=== PATIENT | female | born 1940 | race Two or more races ===

== ENCOUNTER 2017-05-08 10:10 | Inpatient (IN) | payer MEDICARE, OTHER ==
[~2017-05-08] VITALS: Ht 162.6 cm; Wt 59.0 kg
[2017-05-08] MEDS ORDERED: [UNRECOGNIZED DRUG - OTHER] PO (10:32)
[2017-05-08] MEDS ORDERED: IRBE300T19 PO (10:32)
[2017-05-08] MEDS ORDERED: LEVO25TA9 PO (10:32)
[2017-05-08] MEDS ORDERED: ASPI81TA31 PO (10:32)
[2017-05-08] MEDS ORDERED: IRBE1TAB33 PO (10:32)
[2017-05-08] MEDS ORDERED: METO-356 PO (10:32)
[2017-05-08] MEDS ORDERED: AMLO5TAB2 PO (10:32)
[2017-05-08] MEDS ORDERED: ONDANSETRON 4 MG/2 ML VIAL IV ONE (10:45)
[2017-05-08] MEDS ORDERED: MECLIZINE HCL 25 MG TABLET PO ONE (10:45)
--- NOTE | 2017-05-08 10:50 | NUR ---
MEDICATED PER MD ORDER. TO CAROL COSTELLO.
[2017-05-08] MEDS ORDERED: ONDANSETRON 4 MG/2 ML VIAL ONE ×2 (11:09→14:23)
[2017-05-08] MEDS ORDERED: MECLIZINE HCL 25 MG TABLET ONE (11:11)
[2017-05-08] MEDS ORDERED: ACETAMINOPHEN ES 500 MG TABLET PO ONE (11:30)
--- NOTE | 2017-05-08 11:30 | NUR ---
BACK FROM CT - COMPLAINING OF HEADACHE, DR BUNN NOTIFIED. MEDICATED FOR PAIN PER MD ORDER.
[2017-05-08 11:41] LABS: BASOPHILS % (AUTO) 0.5 % (0.0-2.0); EOSINOPHILS # (AUTO) 0.1 K/uL (0.0-0.7); HEMATOCRIT 41.9 % (31.2-41.9); HEMOGLOBIN 13.4 g/dL (10.9-14.3); LYMPHOCYTES % (AUTO) 10.7 % (20.5-51.5); MEAN CORPUSCULAR HEMOGLOBIN 24.7 uug (24.7-32.8); MEAN CORPUSCULAR HGB CONC 32 g/dL (32.3-35.6); MEAN CORPUSCULAR VOLUME 77.2 fL (75.5-95.3); MONOCYTES # (AUTO) 0.4 K/uL (2.0-10.0); MONOCYTES % (AUTO) 4.3 % (0.0-11.0); NEUTROPHILS # (AUTO) 7.5 K/uL (1.8-8.9); NEUTROPHILS % (AUTO) 83.5 % (38.5-71.5); PLATELET COUNT (AUTO) 257 K/uL (179-408); RED BLOOD CELL COUNT(AUTO) 5.43 MIL/uL (3.63-4.92); WHITE BLOOD COUNT (AUTO) 8.9 K/uL (3.8-11.8)
[2017-05-08] MEDS ORDERED: ACETAMINOPHEN ES 500 MG TABLET ONE (11:42)
[2017-05-08 12:20] LABS: ALANINE AMINOTRANSFERASE 20 U/L (14-59); ALKALINE PHOSPHATASE 71 U/L (50-136); ASPARTATE AMINOTRANSFERASE 17 U/L (15-37); BILIRUBIN,DIRECT 0.1 mg/dL (0.0-0.2); BILIRUBIN,TOTAL 0.3 mg/dL (0.2-1.0); CARBON DIOXIDE 30 mmol/L (21-32); CHLORIDE 106 mmol/L (98-107); CREATININE 0.8 mg/dL (0.6-1.3); GLUCOSE 105 mg/dL (74-106); POTASSIUM 4.6 mmol/L (3.5-5.1); TOTAL PROTEIN, SERUM 7.4 g/dL (6.4-8.2); UREA NITROGEN, BLOOD 16 mg/dL (7-18)
[2017-05-08 13:10] LABS: *BILIRUBIN,URIN NEGATIVE (NEGATIVE); *BLOOD, URINE NEGATIVE (NEGATIVE); *CLARITY,URINE CLEAR (CLEAR); *COLOR,URINE YELLOW (YELLOW); *KETONES,URINE NEGATIVE (NEGATIVE); *PROTEIN,URINE NEGATIVE (NEGATIVE); *UROBILINOGEN,URINE 0.2 E.U./dl (NORMAL); LEUKOCYTE ESTERASE ,URINE NEGATIVE (NEGATIVE); NITRITE, URINE NEGATIVE (NEGATIVE); PH,URINE 7.5 (5.0-8.0); UGLUCOSE NEGATIVE (NEGATIVE)
[2017-05-08 13:23] LABS: BACTERIA,URINE NONE SEEN /HPF (NONE SEEN); RBC,URINE 0-3 /HPF (0-3); SQUAMOUS EPITHELIAL CELL,UR FEW /HPF (NONE SEEN); WBC,URINE 0-3 /HPF (0-3)
[2017-05-08] MEDS ORDERED: MORPHINE SULFATE 4 MG/1 ML DISP.SYRIN IV ONE (14:00)
[2017-05-08] MEDS ORDERED: MORPHINE SULFATE 4 MG/1 ML DISP.SYRIN ONE (14:25)
[2017-05-08] MEDS ORDERED: MORPHINE SULFATE 2 MG/1 ML DISP.SYRIN IV ONE (14:30)
[2017-05-08] MEDS ORDERED: ONDANSETRON 4 MG/2 ML VIAL IV PRN (17:15)
[2017-05-08] MEDS ORDERED: HYDROCODONE/APAP 5-325MG TABLET PO PRN (17:15)
[2017-05-08] MEDS ORDERED: ACETAMINOPHEN 325 MG TABLET PO PRN (17:15)
[2017-05-08] MEDS ORDERED: MAGNESIUM HYDROXIDE 30 ML LIQUID UDC PO PRN (17:15)
[2017-05-08] MEDS ORDERED: MECLIZINE HCL 25 MG TABLET PO PRN (17:15)
[2017-05-08] MEDS ORDERED: HYDROCODONE/APAP 10-325 MG TABLET PO PRN (17:15)
--- NOTE | 2017-05-08 20:23 | NUR ---
SBAR REPORT TO JANES TAYL[facility] -2ND FLOOR. BELONGINGS LIST/ADMIT ORDER WRITTEN,PT VIA TABITHA TO RM 217.
--- NOTE | 2017-05-08 20:50 | NUR ---
Received patient from ER via [employer]. A&O but Farsi speaking only. Daughter at bedside. TELE Sinus Delvin. C/O head aches when she moves around. Admission protocol followed. Belongings list done. Body assessment done. Skin intact. Patient is ambulatory. Bed is in low and locked position. Room is kept clutter free. Safety initiated. Call light within reach. Will continue to monitor.
[2017-05-08 21:45] VITALS: BP 149/60
[2017-05-08] MEDS: IV NS 1000 ML 1,000 ML IV PRN (22:35)
[2017-05-09] VITALS (8 sets, daily range): BP systolic 128–159; BP diastolic 55–78
--- NOTE | 2017-05-09 05:24 | NUR ---
Patient slept t/o shift. No acute distress noted. On O2 2L NC. Tele SR. Urinating well on diaper. Vital Signs stable. Wound dressing provided. All meds given as ordered. All needs met. Safety and comfort measures maintained t/o shift. Addendum: 05/09/17 at 0526 by ANA NORTON RN charted on the wrong patient. please disregard.
--- NOTE | 2017-05-09 05:51 | NUR ---
Patient slept t/o shift. Tele SR. C/o headaches. Was able to walk to the restroom with assistance. Safety and comfort measures maintained t/o shift. All meds given as ordered. All needs met.
[2017-05-09] MEDS ORDERED: PANTOPRAZOLE SODIUM 40 MG TABLET.DR PO SCH (07:00)
--- NOTE | 2017-05-09 07:00 | NUR ---
While rounding on change of shift endorsement. Patient was noted in bed in semi fowlers position. Denies pain or discomfort, no s/s of cardio pulmonary distress. Call light with in reach. Per endorsement patient is aware to call nurse for assistance while ambulating out of bed. Addendum: 05/09/17 at 1354 by PATRICIA CHANDLER RN Covered patient with amlodipine po qd a.m. held hypertensive mediation sbp 128/59 per last v/s.
[2017-05-09 07:32] LABS: BASOPHILS % (AUTO) 0.6 % (0.0-2.0); EOSINOPHILS # (AUTO) 0.4 K/uL (0.0-0.7); EOSINOPHILS % (AUTO) 4.3 % (0.0-7.0); HEMATOCRIT 39.4 % (31.2-41.9); HEMOGLOBIN 12.7 g/dL (10.9-14.3); LYMPHOCYTES # (AUTO) 2.1 K/uL (20.0-40.0); LYMPHOCYTES % (AUTO) 24.9 % (20.5-51.5); MEAN CORPUSCULAR HEMOGLOBIN 24.9 uug (24.7-32.8); MEAN CORPUSCULAR HGB CONC 32 g/dL (32.3-35.6); MEAN CORPUSCULAR VOLUME 77.5 fL (75.5-95.3); MONOCYTES # (AUTO) 0.6 K/uL (2.0-10.0); MONOCYTES % (AUTO) 7.8 % (0.0-11.0); NEUTROPHILS # (AUTO) 5.1 K/uL (1.8-8.9); NEUTROPHILS % (AUTO) 62.4 % (38.5-71.5); PLATELET COUNT (AUTO) 241 K/uL (179-408); RED BLOOD CELL COUNT(AUTO) 5.08 MIL/uL (3.63-4.92); WHITE BLOOD COUNT (AUTO) 8.2 K/uL (3.8-11.8)
[2017-05-09 07:45] LABS: CARBON DIOXIDE 27 mmol/L (21-32); CHLORIDE 111 mmol/L (98-107); CHOLESTEROL 154 mg/dL (<200); CREATININE 0.9 mg/dL (0.6-1.3); GLUCOSE 89 mg/dL (74-106); HDL CHOLESTEROL 66 mg/dL (40-60); MAGNESIUM 1.8 mg/dL (1.8-2.4); PHOSPHOROUS 3.4 mg/dL (2.5-4.9); POTASSIUM 3.9 mmol/L (3.5-5.1); TRIGLYCERIDES 40 MG/DL (30-150); UREA NITROGEN, BLOOD 13 mg/dL (7-18)
[2017-05-09] MEDS ORDERED: LEVOTHYROXINE SODIUM 25 MCG TABLET PO SCH (08:00)
[2017-05-09] MEDS ORDERED: HYDROCHLOROTHIAZIDE 12.5 MG CAPSULE PO SCH (09:00)
[2017-05-09] MEDS ORDERED: AMLODIPINE 5 MG TABLET PO SCH (09:00)
[2017-05-09] MEDS ORDERED: VALSARTAN 160 MG TABLET PO SCH (09:00)
[2017-05-09] MEDS ORDERED: ASPIRIN 81 MG TAB.CHEW PO SCH (09:00)
--- NOTE | 2017-05-09 11:15 | NUR ---
While rounding on mediation pass. Family member was noted at bedside. Family requested an update on plan of care. Made aware at this time patient is pending neuro consult for worsening vertigo symptoms. Patient and family aware to call nursing for assistance while ambulating in and out of bed. Call light with in reach. Continue to monitor.
[2017-05-09] MEDS: METOPROLOL SUCCINATE XL 25 MG TAB.SR.24H PO SCH ×2 (11:45→15:44)
--- NOTE | 2017-05-09 13:04 | NUR ---
While nurse was rounding patient was noted with TYLER on frontal of head and lower posterior base of skull. ambulated patient to restroom, complained of H.A. while changing position and ambulating to restroom. Dangle feet at bed and instructed patient to place feet on ground and wait while blood pressure stabilized. Did not tolerate ambulating due to dizziness and discomfort. No episodes of falls while ambulating with nurse. Call light with in reach. Noted SBP 154/64, hr 66. Family at beside, patient teaching on b.p. medication and administration; gave hydrochlorothiazide from a.m. at this point and time. Patient and family verbalized understanding of instructions. per family neuro was in to see patient. Addendum: 05/09/17 at 1310 by PATRICIA CHANDLER RN Amended: Links added. Addendum: 05/09/17 at 1356 by PATRICIA CHANDLER RN Instructed family and patient that plan of care will to introduce hypertensive medications slowly. Covered patient with Tyleno for h.a., antivert medication, and hydrochlorothiazide for sbp that is increasing at this point and time.
[2017-05-09] MEDS: IV NS 1000 ML 1,000 ML IV PRN (14:37)
--- NOTE | 2017-05-09 15:47 | NUR ---
sbp 144/64, hr 59. vertigo improved anti-vertigo prn medication.
--- NOTE | 2017-05-09 17:15 | NUR ---
SBP 143/56, HR 56 laying down flat quietly. Addendum: 05/09/17 at 1856 by PATRICIA CHANDLER RN Amended: Links added.
--- NOTE | 2017-05-09 18:57 | NUR ---
Still complains of little dizziness, SBP while sitting down quietly 158/72 hr 61. Addendum: 05/09/17 at 1858 by PATRICIA CHANDLER RN Amended: Links added.
--- NOTE | 2017-05-09 18:58 | NUR ---
Nurse stood in room for ortho SBP while standing quietly, patient complaint of dizziness. SBP while standing 159/78 hr 72. Addendum: 05/09/17 at 1859 by PATRICIA CHANDLER RN Amended: Links added.
== END 2017-05-09 18:15 | disposition home or self-care (01) | DRG 149 ==
LOC: ER 10:10 → TELE 20:27 → MED 05-09 12:20
PROVIDERS: ADMIT Nurse Practitioner Acute Care; ATTEND Nurse Practitioner Acute Care
DX: H81.10 Benign paroxysmal vertigo, unspecified ear (principal); E03.9 Hypothyroidism, unspecified; I10 Essential (primary) hypertension; H40.9 Unspecified glaucoma; Z86.011 Personal history of benign neoplasm of the brain; G44.209 Tension-type headache, unspecified, not intractable; Z79.82 Long term (current) use of aspirin; Z79.899 Other long term (current) drug therapy; Z98.49 Cataract extraction status, unspecified eye
CPT/HCPCS: 36415; 70030-TC; 70450; 71045; 83735; 84100; 85025; 85730; 93005; A4663; J2270; J2405; J7030; J8597

== ENCOUNTER 2017-05-14 23:12 | Inpatient (IN) | payer MEDICARE, OTHER ==
[~2017-05-14] VITALS: Ht 162.6 cm; Wt 59.0 kg
[~2017-05-14 23:12] MED LIST: AMLO5TAB2 PO; ASPI81TA31 PO; IRBE1TAB33 PO; IRBE300T19 PO; LEVO25TA9 PO; METO-356 PO; [UNRECOGNIZED DRUG - OTHER] PO
--- NOTE | 2017-05-14 23:31 | NUR ---
Patient BIB [facility] 909 c/o dizziness. Patient, via daughter who is translating FARSI, states that she had an episode of high blood pressure. Patient states her blood pressure was approximately 180 systolic, and that she felt dizzy and had a headache. 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 To room 5A.
[2017-05-15 00:03] LABS: BASOPHILS # (AUTO) 0.1 K/uL (0.0-8.0); BASOPHILS % (AUTO) 0.7 % (0.0-2.0); EOSINOPHILS # (AUTO) 0.4 K/uL (0.0-0.7); EOSINOPHILS % (AUTO) 3.6 % (0.0-7.0); HEMATOCRIT 39.8 % (31.2-41.9); HEMOGLOBIN 12.9 g/dL (10.9-14.3); LYMPHOCYTES # (AUTO) 1.8 K/uL (20.0-40.0); LYMPHOCYTES % (AUTO) 16.6 % (20.5-51.5); MEAN CORPUSCULAR HGB CONC 33 g/dL (32.3-35.6); MEAN CORPUSCULAR VOLUME 76.9 fL (75.5-95.3); MONOCYTES # (AUTO) 0.7 K/uL (2.0-10.0); MONOCYTES % (AUTO) 6.5 % (0.0-11.0); NEUTROPHILS # (AUTO) 7.8 K/uL (1.8-8.9); NEUTROPHILS % (AUTO) 72.6 % (38.5-71.5); PLATELET COUNT (AUTO) 243 K/uL (179-408); RED BLOOD CELL COUNT(AUTO) 5.18 MIL/uL (3.63-4.92); WHITE BLOOD COUNT (AUTO) 10.7 K/uL (3.8-11.8)
[2017-05-15 00:18] LABS: CARBON DIOXIDE 29 mmol/L (21-32); CHLORIDE 103 mmol/L (98-107); CREATININE 1.1 mg/dL (0.6-1.3); GLUCOSE 105 mg/dL (74-106); UREA NITROGEN, BLOOD 20 mg/dL (7-18)
[2017-05-15 00:31] LABS: ALANINE AMINOTRANSFERASE 24 U/L (14-59); ALKALINE PHOSPHATASE 73 U/L (50-136); ASPARTATE AMINOTRANSFERASE 18 U/L (15-37); BILIRUBIN,DIRECT 0.1 mg/dL (0.0-0.2); BILIRUBIN,TOTAL 0.3 mg/dL (0.2-1.0); TOTAL PROTEIN, SERUM 7.5 g/dL (6.4-8.2)
[2017-05-15 01:11] LABS: *BILIRUBIN,URIN NEGATIVE (NEGATIVE); *BLOOD, URINE 1+ (NEGATIVE); *CLARITY,URINE SLIGHTLY CLOUDY (CLEAR); *COLOR,URINE YELLOW (YELLOW); *KETONES,URINE NEGATIVE (NEGATIVE); *PROTEIN,URINE NEGATIVE (NEGATIVE); *UROBILINOGEN,URINE 0.2 E.U./dl (NORMAL); LEUKOCYTE ESTERASE ,URINE 3+ (NEGATIVE); NITRITE, URINE NEGATIVE (NEGATIVE); UGLUCOSE NEGATIVE (NEGATIVE)
[2017-05-15 01:15] LABS: BACTERIA,URINE FEW /HPF (NONE SEEN); SQUAMOUS EPITHELIAL CELL,UR FEW /HPF (NONE SEEN)
[2017-05-15] MEDS ORDERED: HYDROCODONE/APAP 5-325MG TABLET PO ONE (01:15)
[2017-05-15] MEDS ORDERED: HYDROCODONE/APAP 5-325MG TABLET ONE (01:28)
[2017-05-15] MEDS ORDERED: ENOXAPARIN SODIUM 30 MG/0.3 ML DISP.SYRIN SQ SCH ×2 (02:00→20:15)
[2017-05-15] MEDS ORDERED: CLONIDINE HCL 0.1 MG TABLET PO PRN (02:00)
[2017-05-15] MEDS ORDERED: ACETAMINOPHEN 325 MG TABLET PO PRN (02:00)
[2017-05-15] MEDS ORDERED: Z GUARD REMEDY PASTE 57 GM TUBE TOP PRN (02:00)
[2017-05-15] MEDS ORDERED: HYDROCODONE/APAP 5-325MG TABLET PO PRN (02:00)
[2017-05-15] MEDS ORDERED: MAGNESIUM HYDROXIDE 30 ML LIQUID UDC PO PRN (02:00)
[2017-05-15] MEDS ORDERED: ONDANSETRON 4 MG/2 ML VIAL IV PRN (02:00)
--- NOTE | 2017-05-15 02:00 | NUR ---
Pt. admitted to TELE, under care of Dr. Douglas. No TELE beds available at this time, patient will remain in ER room 5A until TELE bed opens. Belongs List completed.
[2017-05-15] MEDS: CEFTRIAXONE 1 G in IV DEXTROSE 5% 50 ML IV SCH (02:10)
[2017-05-15] MEDS: IV NS 1000 ML 1,000 ML IV PRN ×2 (02:16→22:22)
[2017-05-15] MEDS ORDERED: CEFTRIAXONE 1 G VIAL ONE ×2 (02:23→08:41)
[2017-05-15] MEDS ORDERED: ENOXAPARIN SODIUM 30 MG/0.3 ML DISP.SYRIN ONE (02:23)
[2017-05-15] MEDS ORDERED: ONDANSETRON 4 MG/2 ML VIAL ONE (04:27)
[2017-05-15] MEDS ORDERED: CEFTRIAXONE 1 G in IV DEXTROSE 5% 50 ML IV ONE (08:30)
[2017-05-15] MEDS ORDERED: AMLODIPINE 5 MG TABLET ONE (08:40)
[2017-05-15] MEDS ORDERED: ASPIRIN 81 MG TAB.CHEW ONE (08:40)
[2017-05-15] MEDS ORDERED: METOPROLOL SUCCINATE XL 25 MG TAB.SR.24H PO ONE (08:41)
[2017-05-15] MEDS: ASPIRIN 81 MG TAB.CHEW PO SCH (08:42)
[2017-05-15] MEDS ORDERED: METOPROLOL SUCCINATE XL 25 MG TAB.SR.24H PO SCH (09:00)
[2017-05-15] MEDS ORDERED: CHOLECALCIFEROL PO SCH (09:00)
[2017-05-15] MEDS ORDERED: AMLODIPINE 5 MG TABLET PO SCH (09:00)
[2017-05-15] MEDS ORDERED: LEVOTHYROXINE SODIUM 25 MCG TABLET PO SCH (09:00)
--- NOTE | 2017-05-15 09:33 | NUR ---
pt daughter at bedside helping the pt with breakfast. no apetite.
--- NOTE | 2017-05-15 10:43 | NUR ---
NO BED AVAILABLE AT THIS TIME PER NSG SMOKE ROOM OPERATOR
--- NOTE | 2017-05-15 10:55 | NUR ---
PT AMBULATED TO BATHROOM WITH ASSISSTANCE.
--- NOTE | 2017-05-15 13:00 | NUR ---
HOSPITAL LUNCH TRAY AT BEDSIDE. PT DAUGHTER AT [facility].
--- NOTE | 2017-05-15 13:19 | NUR ---
PT DAUGHTER SAYS THAT SHE WAS TOLD BY THE PREVIOUS DOCTOR THAT THE PT NEEDS MRI.TALKED TO DR. KELLY REGARDING PT CONCERN.
--- NOTE | 2017-05-15 13:28 | NUR ---
TALKED TO CARLEY AT [facility] FOLLOWING UP ON THE MRI ORDER.
--- NOTE | 2017-05-15 13:35 | NUR ---
TEXTED DR. WHEAT FOR MRI APPROVAL.
--- NOTE | 2017-05-15 14:21 | NUR ---
TRIP NUMBER [id number] AT [address] [facility].
[2017-05-15] MEDS ORDERED: DIAZEPAM 2 MG TABLET PO ONE (14:30)
[2017-05-15] MEDS ORDERED: DIAZEPAM 5 MG TABLET ONE (14:45)
--- NOTE | 2017-05-15 16:47 | NUR ---
AMBULANZ AT BEDSIDE TO TRANSFER THE PT TO [facility] FOR MRI
--- NOTE | 2017-05-15 17:37 | NUR ---
BED 209 READY. PT WILL GO TO ROOM 209 WHEN COMES BACK FROM MRI
[2017-05-15 18:30] VITALS: BP 159/69
--- NOTE | 2017-05-15 18:45 | NUR ---
patient arrived to med surg floor via [facility] with [facility]. patient transferred from ER to [facility] and transferred to our floor directly from [facility]. 2 daughters at bedside. patient stable upon arrival to unit. VSS. patient placed on performance improvement consultant. will monitor.
--- NOTE | 2017-05-15 19:30 | NUR ---
RECEIVED SBAR REPORT FROM PREVIOUS;PT'S A/A/O X4,NEWLY ADMISSION W/DX OF ATAXIA,UTI;FARSI SPEAKER BUT PT'S DAUGHTER AT THE BEDSIDE WILL BE LINE MAINTENANCE SUPERVISOR.CC OF DIZZINESS,N/V AT HOME;CARRIED OUT ORDERS AND UPDATED THE PLAN OF CARE TO PT AND HER DAUGHTER;THEY VERBALIZED UNDERSTANDING AND COOPERATIVE NOTED.TELEMETRY'S SR 60/MIN NOTED.
[2017-05-15 20:00] VITALS: BP 144/58
[2017-05-15] MEDS ORDERED: GADOVERSETAMIDE 2.5 MMOL/5 ML VIAL IV ONE ×2 (20:08)
[2017-05-15] MEDS: VALSARTAN 80 MG TABLET PO SCH (20:54)
[2017-05-15] MEDS: AMLODIPINE 5 MG TABLET PO SCH (20:54)
--- NOTE | 2017-05-15 21:45 | NUR ---
VISITED PT AND DISCUSSED W/THE PLAN OF CARE TO PT AND HER DAUGHTER;THEY VERBALIZED UNDERSTANDING AND COOPERATIVE NOTED.TELEMETRY'S SB 56/MIN NOTED.ASSISTED PT TO BATHROOM;STEADY GAIT;PT C/O A LITTLE DIZZINESS WHILE MOVING HER HEAD NOTED.KEPT COMFORT.CALL-LIGHT WITHIN REACH.MAINTAINED IVF ORDER.CALL-LIGHT WITHIN REACH.
[2017-05-16 00:28] VITALS: BP 154/62
[2017-05-16] MEDS ORDERED: hydrALAZINE HCL 25 MG TABLET ONE (00:46)
[2017-05-16] MEDS: CEFTRIAXONE 1 G in IV DEXTROSE 5% 50 ML IV SCH (01:08)
--- NOTE | 2017-05-16 02:00 | NUR ---
ROCEPHIN 1 GM IVPB WAS GIVEN TO PT AT THIS TIME;EDUCATED TO PT AND TRANSLATED BY HER DAUGHTER WHO STAYED AT THE BEDSIDE;PT VERBALIZED UNDERSTANDING AND COOPERATIVE.TELEMETRY'S SB 48/MIN NOTED.KEPT CALL-LIGHT WITHIN REACH.
[2017-05-16 04:50] VITALS: BP 150/58
[2017-05-16] MEDS: LEVOTHYROXINE SODIUM 25 MCG TABLET PO SCH (06:22)
--- NOTE | 2017-05-16 06:30 | NUR ---
PT'S COMFORTABLE ON BED,SLEPT ON/OFF IN THE SHIFT,STILL C/O DIZZINESS WHILE WALKING TO BATHROOM BUT DENIED OF PAIN.NO DISTRESS NOTED IN THE SHIFT.TELEMETRY'S SB 50/MIN AT THIS TIME.
--- NOTE | 2017-05-16 08:00 | NUR ---
AWAKE ALERT AND ORIENTED X3 NO SIGNS OF PAIN OR DISTRESS, SB ON MONITOR
[2017-05-16] MEDS: ENOXAPARIN SODIUM 40 MG/0.4 ML DISP.SYRIN SQ SCH (08:33)
[2017-05-16] MEDS: ASPIRIN 81 MG TAB.CHEW PO SCH (08:35)
[2017-05-16] MEDS: CHOLECALCIFEROL 1,000 UNIT TABLET PO SCH (08:35)
[2017-05-16] MEDS: VALSARTAN 80 MG TABLET PO SCH ×2 (08:35→20:55)
[2017-05-16 09:28] LABS: BASOPHILS % (AUTO) 0.7 % (0.0-2.0); EOSINOPHILS # (AUTO) 0.5 K/uL (0.0-0.7); EOSINOPHILS % (AUTO) 6.3 % (0.0-7.0); HEMATOCRIT 39.9 % (31.2-41.9); HEMOGLOBIN 13.5 g/dL (10.9-14.3); LYMPHOCYTES # (AUTO) 1.8 K/uL (20.0-40.0); LYMPHOCYTES % (AUTO) 23.8 % (20.5-51.5); MEAN CORPUSCULAR HGB CONC 34 g/dL (32.3-35.6); MEAN CORPUSCULAR VOLUME 76.7 fL (75.5-95.3); MONOCYTES # (AUTO) 0.5 K/uL (2.0-10.0); MONOCYTES % (AUTO) 7.3 % (0.0-11.0); NEUTROPHILS # (AUTO) 4.6 K/uL (1.8-8.9); NEUTROPHILS % (AUTO) 61.9 % (38.5-71.5); PLATELET COUNT (AUTO) 214 K/uL (179-408)
[2017-05-16 09:43] LABS: WHITE BLOOD COUNT (AUTO) 7.4 K/uL (3.8-11.8)
[2017-05-16 09:48] LABS: CARBON DIOXIDE 26 mmol/L (21-32); CHLORIDE 108 mmol/L (98-107); CREATININE 0.7 mg/dL (0.6-1.3); GLUCOSE 77 mg/dL (74-106); PHOSPHOROUS 3.4 mg/dL (2.5-4.9); UREA NITROGEN, BLOOD 12 mg/dL (7-18)
[2017-05-16] MEDS: HYDROCHLOROTHIAZIDE 12.5 MG CAPSULE PO SCH (11:15)
[2017-05-16 11:43] VITALS: BP 141/51
--- NOTE | 2017-05-16 12:00 | NUR ---
REMAINS SB WITH MULTIPLE PVS, DENIES CP SOB. DR MCCULLOUGH AWARE
--- NOTE | 2017-05-16 15:45 | NUR ---
CONTINUE WITH NEURO OBSERVATION, DENIES SEVERE DIZZINESS, TYLER, N/V. REMAINS ALERT AND ORIENTED X3
--- NOTE | 2017-05-16 19:44 | NUR ---
RECEIVED SHIFT REPORT FROM DAY SHIFT NURSE. PATIENT A/OX4, DAUGHTER AT BEDSIDE. STABLE CONDITION, NO S/S OF DISTRESS. HR ELEVATES TO 120s WHEN AMBULATING TO RESTROOM. INFORMED DAUGHTER AND PATIENT TO HAVE PATIENT USE CALL LIGHT WHEN ASSISTANCE IS NEEDED. PATIENT AND DAUGHTER VERBALIZED UNDERSTANDING. BED IN LOCKED/LOW POSITION, SIDE RAILS UP X2, BED ALARM ON, CALL LIGHT WITHIN REACH. COMFORT/SAFETY WILL BE PROVIDED.
[2017-05-16 20:28] VITALS: BP 159/70
[2017-05-16] MEDS: AMLODIPINE 5 MG TABLET PO SCH (20:53)
[2017-05-16 23:17] VITALS: BP 167/59
--- NOTE | 2017-05-16 23:18 | NUR ---
ELEVATED BLOOD PRESSURE 167/59. WILL ADMINISTER APRESOLINE 25 MG PO. WILL CONTINUE TO MONITOR PATIENT AND RE-CHECK BLOOD PRESSURE.
[2017-05-16] MEDS ORDERED: VALSARTAN 80 MG TABLET PO ONE (23:37)
[2017-05-16] MEDS: hydrALAZINE HCL 25 MG TABLET PO PRN (23:43)
[2017-05-17 00:19] VITALS: BP 159/64
[2017-05-17] MEDS ORDERED: VALSARTAN 80 MG TABLET ONE (00:22)
[2017-05-17] MEDS: CEFTRIAXONE 1 G in IV DEXTROSE 5% 50 ML IV SCH (01:45)
[2017-05-17 04:00] VITALS: BP 160/72
--- NOTE | 2017-05-17 06:22 | NUR ---
PATIENT RESTING COMFORTABLY IN BED. STABLE CONDITION, NO S/S OF DISTRESS. BLOOD PRESSURE HAS BEEN ELEVATED- LAST CHECKED 160/72. HYDRALAZINE 25 MG PO WILL BE ADMINISTERED. MD AWARE OF PATIENT'S ELEVATED BLOOD PRESSURE. PATIENT'S DAUGHTER VERBALIZES THAT PATIENT BECOMES EASILY WORRIED AND OFTEN. WILL RE-CHECK BLOOD PRESSURE AFTER MEDICATION PROVIDED AND INFORM NEXT SHIFT NURSE. AMBULATORY WITH ASSISTANCE WHEN GOING TO THE RESTROOM AND ASSISTANCE WAS PROVIDED TO PATIENT THROUGHOUT SHIFT. OTHERWISE, PATIENT IS COOPERATIVE, DAUGHTER AT BEDSIDE FOR TRANSLATING. BED IN LOCKED/ LOW POSITION, SIDE RAILS UP X2, CALL LIGHT WITHIN REACH.
[2017-05-17] MEDS: hydrALAZINE HCL 25 MG TABLET PO PRN (06:31)
[2017-05-17] MEDS: LEVOTHYROXINE SODIUM 25 MCG TABLET PO SCH (06:31)
--- NOTE | 2017-05-17 08:00 | NUR ---
AWAKE ALERT AND ORIENTED X3 NO SS OF PAIN OR DISTRESS, NOTED WITH BIGEMINY ON MONITOR ULSR, NO CHEST PAIN
[2017-05-17] MEDS: ASPIRIN 81 MG TAB.CHEW PO SCH (08:48)
[2017-05-17] MEDS: HYDROCHLOROTHIAZIDE 12.5 MG CAPSULE PO SCH (08:49)
[2017-05-17] MEDS: CHOLECALCIFEROL 1,000 UNIT TABLET PO SCH (08:49)
[2017-05-17] MEDS: ENOXAPARIN SODIUM 40 MG/0.4 ML DISP.SYRIN SQ SCH (08:52)
[2017-05-17] MEDS ORDERED: VALSARTAN 80 MG TABLET PO SCH (09:00)
[2017-05-17 10:17] LABS: BASOPHILS # (AUTO) 0.1 K/uL (0.0-8.0); BASOPHILS % (AUTO) 0.7 % (0.0-2.0); EOSINOPHILS # (AUTO) 0.3 K/uL (0.0-0.7); EOSINOPHILS % (AUTO) 3.1 % (0.0-7.0); HEMATOCRIT 44.9 % (31.2-41.9); HEMOGLOBIN 14.6 g/dL (10.9-14.3); LYMPHOCYTES % (AUTO) 22.8 % (20.5-51.5); MEAN CORPUSCULAR HEMOGLOBIN 25.1 uug (24.7-32.8); MEAN CORPUSCULAR HGB CONC 33 g/dL (32.3-35.6); MONOCYTES # (AUTO) 0.5 K/uL (2.0-10.0); MONOCYTES % (AUTO) 5.4 % (0.0-11.0); NEUTROPHILS # (AUTO) 5.9 K/uL (1.8-8.9); PLATELET COUNT (AUTO) 235 K/uL (179-408); RED BLOOD CELL COUNT(AUTO) 5.84 MIL/uL (3.63-4.92); WHITE BLOOD COUNT (AUTO) 8.7 K/uL (3.8-11.8)
[2017-05-17 10:31] LABS: IRON, SERUM 55 ug/dL (50-175)
[2017-05-17 10:33] LABS: THYROID STIMULATING HORMONE 2.521 mIU/mL (0.358-3.740)
[2017-05-17 10:48] LABS: CARBON DIOXIDE 27 mmol/L (21-32); CHLORIDE 105 mmol/L (98-107); CREATININE 0.8 mg/dL (0.6-1.3); GLUCOSE 124 mg/dL (74-106); MAGNESIUM 1.9 mg/dL (1.8-2.4); PHOSPHOROUS 2.9 mg/dL (2.5-4.9); POTASSIUM 3.5 mmol/L (3.5-5.1); UREA NITROGEN, BLOOD 10 mg/dL (7-18)
[2017-05-17 11:12] VITALS: BP 148/66
--- NOTE | 2017-05-17 12:00 | NUR ---
SEEN BY DR KELLY WITH ORDERS FOR DISCHARGE
[2017-05-17] MEDS ORDERED: SULF1TAB3 PO (12:59)
[2017-05-17] MEDS ORDERED: MECL12.582 PO (12:59)
[2017-05-17] MEDS ORDERED: POTASSIUM CHLORIDE 20 MEQ TAB.PRT.SR PO ONE (13:00)
--- NOTE | 2017-05-17 16:40 | NUR ---
discharged home stable accompanied by daughter via private car with rx and follow-up instruction
[2017-05-17] MEDS ORDERED: SULFAMETH/TRIMETH 800/160 MG TABLET PO SCH (21:00)
== END 2017-05-17 16:40 | disposition home health service (06) | DRG 149 ==
LOC: ER 23:17 → TELE 05-15 18:41
PROVIDERS: ADMIT Internal Medicine; ATTEND Internal Medicine
DX: H81.10 Benign paroxysmal vertigo, unspecified ear (principal); N17.0 Acute kidney failure with tubular necrosis; N39.0 Urinary tract infection, site not specified; E03.9 Hypothyroidism, unspecified; Z86.39 Personal history of other endocrine, nutritional and metabolic disease; Z79.82 Long term (current) use of aspirin; Z79.899 Other long term (current) drug therapy; Z98.49 Cataract extraction status, unspecified eye; H40.9 Unspecified glaucoma; R00.1 Bradycardia, unspecified; T44.7X5A Adverse effect of beta-adrenoreceptor antagonists, initial encounter; Y92.89 Other specified places as the place of occurrence of the external cause; F41.9 Anxiety disorder, unspecified; I10 Essential (primary) hypertension; R73.09 Other abnormal glucose; I49.3 Ventricular premature depolarization; G43.909 Migraine, unspecified, not intractable, without status migrainosus
CPT/HCPCS: 36415; 70030-TC; 70450; 70553; 71045; 82306; 83550; 83605; 83735; 84100; 84443; 85025; 85730; 87040; 87086; 93005; 93307; 93880; A4663; A9579; J0696; J1650; J2405; J3490; J7030; J7050; J7060

== ENCOUNTER 2023-02-08 20:10 | Emergency (ER) | payer MEDICARE, OTHER ==
[~2023-02-08] VITALS: Ht 162.6 cm; Wt 59.0 kg
[~2023-02-08 20:10] MED LIST changes: +AMLO-212 PO; -AMLO5TAB2 PO; +MECL-225 PO; -METO-356 PO; +SULF1TAB3 PO
[2023-02-08] MEDS ORDERED: IRBE300T19 PO (20:28)
[2023-02-08] MEDS ORDERED: metoprolol PO (20:28)
[2023-02-08 21:10] LABS: BASOPHILS % (AUTO) 0.3 % (0.0-2.0); EOSINOPHILS # (AUTO) 0.3 K/uL (0.0-0.7); EOSINOPHILS % (AUTO) 2.9 % (0.0-7.0); HEMATOCRIT 39.7 % (31.2-41.9); HEMOGLOBIN 12.8 g/dL (10.9-14.3); LYMPHOCYTES # (AUTO) 1.3 K/uL (0.8-4.8); MEAN CORPUSCULAR HEMOGLOBIN 25.6 uug (24.7-32.8); MEAN CORPUSCULAR HGB CONC 32 g/dL (32.3-35.6); MEAN CORPUSCULAR VOLUME 79.1 fL (75.5-95.3); MONOCYTES # (AUTO) 0.8 K/uL (0.1-1.30); NEUTROPHILS # (AUTO) 6.5 K/uL (1.8-8.9); NEUTROPHILS % (AUTO) 72.8 % (38.5-71.5); PLATELET COUNT (AUTO) 261 K/uL (179-408); RED BLOOD CELL COUNT(AUTO) 5.01 MIL/uL (3.63-4.92); RED CELL DISTRIBUTION WIDTH 15.6 % (12.3-17.7); WHITE BLOOD COUNT (AUTO) 8.9 K/uL (3.8-11.8)
[2023-02-08 21:15] LABS: DIFFERENTIAL COMMENT 1
[2023-02-08 21:20] LABS: CALCIUM 8.6 mg/dL (8.5-10.1); CREATININE 1.1 mg/dL (0.6-1.3); POTASSIUM 4.5 mmol/L (3.5-5.1)
[2023-02-08 21:42] LABS: *BILIRUBIN,URIN NEGATIVE (NEGATIVE); *CLARITY,URINE CLEAR (CLEAR); *COLOR,URINE YELLOW (YELLOW); *KETONES,URINE NEGATIVE (NEGATIVE); *PROTEIN,URINE 1+ (NEGATIVE); *UROBILINOGEN,URINE 0.2 E.U./dl (NORMAL); LEUKOCYTE ESTERASE ,URINE 3+ (NEGATIVE); NITRITE, URINE NEGATIVE (NEGATIVE); UGLUCOSE NEGATIVE (NEGATIVE)
[2023-02-08] MEDS ORDERED: GUAI120L56 PO (21:56)
[2023-02-08 22:06] LABS: *BLOOD, URINE TRACE (NEGATIVE)
[2023-02-08 22:19] VITALS: BP 142/71; TEMP 99; O2SAT 99
[2023-02-08 22:57] LABS: BACTERIA,URINE MANY /HPF (NONE SEEN); RBC,URINE 0-3 /HPF (0-3); WBC,URINE 50-80 /HPF (0-3)
[2023-02-08 22:58] LABS: SQUAMOUS EPITHELIAL CELL,UR MODERATE /HPF (NONE SEEN)
== END 2023-02-08 22:19 | disposition home or self-care (01) ==
LOC: ER 20:13
DX: B34.9 Viral infection, unspecified (principal); I10 Essential (primary) hypertension; E03.9 Hypothyroidism, unspecified; R07.89 Other chest pain; Z79.899 Other long term (current) drug therapy; Z79.82 Long term (current) use of aspirin; Z20.822 Contact with and (suspected) exposure to COVID-19
CPT/HCPCS: 36415; 71045; 85025; A4663